=== PATIENT | male | born 1985 | race Two or more races ===

== ENCOUNTER 2017-04-27 12:40 | Emergency (ER) | payer BC ==
--- NOTE | 2017-04-27 13:47 | EDM.PDOC ---
ED HPI GENERAL MEDICAL PROBLEM - General Chief Complaint: Lower Extremity Injury/Pain Stated Complaint: LT LEG AND FOOT NUMBNESS Time Seen by Provider: 04/27/17 12:57 Source of Information: Reports: Patient, RN Notes Reviewed - History of Present Illness INITIAL COMMENTS - FREE TEXT/NARRATIVE: 32-year-old male has developed numbness of his left foot and lateral leg. He states this first started about 3 or 4 days ago and has been becoming progressively worse. Today he feels like he is developing weakness in dorsiflexion of his left foot and great toe. He does not have major discomfort of the back or leg. No fall or apparent injury. He states he is diabetic but does not check his blood sugars, not currently on medication for that. Also with this work he is on his feet most of the day working fairly long hours. He has had no headache or neck discomfort. No right leg symptoms and also no upper extremity symptoms. - Related Data Allergies Allergy/AdvReac Type Severity Reaction Status Date / Time No Known Allergies Allergy Verified 04/27/17 12:52 Home Meds: Home Meds metFORMIN [Glucophage] 500 mg PO BIDMEALS #60 tablet 04/27/17 [Rx] Past Medical History Respiratory History: Reports: Asthma Endocrine/Metabolic History: Reports: Diabetes, Type II Social & Family History - Tobacco Use Smoking Status *Q: Never Smoker Second Hand Smoke Exposure: No - Caffeine Use Caffeine Use: Reports: Coffee - Recreational Drug Use Recreational Drug Use: No Review of Systems - Review of Systems Review Of Systems: See Below Constitutional: Denies: Chills, Fever Eyes: Reports: No Symptoms Mouth/Throat: Reports: No Symptoms Respiratory: Denies: Shortness of Breath, Wheezing, Pleuritic Chest Pain Cardiovascular: Denies: Chest Pain GI/Abdominal: Denies: Abdominal Pain, Nausea, Vomiting Musculoskeletal: Denies: Back Pain, Leg Pain, Foot Pain, Joint Pain Skin: Reports: No Symptoms Neurological: Reports: Numbness (Left foot and distal left lateral leg), Tingling, Weakness (Left toe and dorsiflexion left foot). Denies: Trouble Speaking, Difficulty Walking ED EXAM, GENERAL - Physical Exam Exam: See Below General Appearance: Alert, No Apparent Distress Eye Exam: Bilateral Eye: PERRL Throat/Mouth: Normal Inspection Head: Atraumatic. No: Facial Swelling Neck: Supple, Full Range of Motion Respiratory/Chest: No Respiratory Distress, Lungs Clear, Normal Breath Sounds Cardiovascular: Regular Rate, Rhythm Peripheral Pulses: 4+: Dorsalis Pedis (L), Dorsalis Pedis (R) GI/Abdominal: Soft, Non-Tender Back Exam: No: CVA Tenderness (L), CVA Tenderness (R) Extremities: No: Pedal Edema, Leg Pain, Increased Warmth, Redness Neurological: Alert, Oriented, Other (Decreased sensation to touch and scratch plantar surface left foot and distal lateral left leg, weakness to dorsiflexion and great toe flexion left foot compared to the right.) Skin Exam: Warm, Dry, Normal Color Course - Vital Signs Last Recorded V/S: Last Vital Signs Temp 97.8 F 04/27/17 12:52 Pulse 89 04/27/17 12:52 Resp 18 04/27/17 12:52 BP 131/86 04/27/17 12:52 Pulse Ox 100 04/27/17 12:52 - Orders/Labs/Meds Labs: Laboratory Tests 04/27/17 04/27/17 Range/Units 13:25 13:25 WBC 6.30 (4.23-9.07) K/mm3 RBC 5.43 (4.63-6.08) M/mm3 Hgb 16.0 (13.7-17.5) gm/L Hct 45.7 (40.1-51.0) % MCV 84.2 (79.0-92.2) fl MCH 29.5 (25.7-32.2) pg MCHC 35.0 (32.2-35.5) g/dl RDW Std Deviation 41.1 (35.1-43.9) fL Plt Count 192 (163-337) K/mm3 MPV 8.6 L (9.4-12.3) fl Neut % (Auto) 58.7 (34.0-67.9) % Lymph % (Auto) 27.6 (21.8-53.1) % Mclennan % (Auto) 10.3 (5.3-12.2) % Eos % (Auto) 2.9 (0.8-7.0) Baso % (Auto) 0.2 (0.1-1.2) % Neut # (Auto) 3.70 (1.78-5.38) K/mm3 Lymph # (Auto) 1.74 (1.32-3.57) K/mm3 Mclennan # (Auto) 0.65 (0.30-0.82) K/mm3 Eos # (Auto) 0.18 (0.04-0.54) K/mm3 Baso # (Auto) 0.01 (0.01-0.08) K/mm3 Sodium 142 (136-145) mEq/L Potassium 3.9 (3.5-5.1) mEq/L Chloride 104 (98-107) mEq/L Carbon Dioxide 25 (21-32) mEq/L Anion Gap 16.9 H (5-15) BUN 14 (7-18) mg/dL Creatinine 0.7 (0.7-1.3) mg/dL Est Cr Clr Drug Dosing 157.88 mL/min Estimated GFR (MDRD) > 60 (>60) mL/min BUN/Creatinine Ratio 20.0 H (14-18) Glucose 139 H (74-106) mg/dL Calcium 9.1 (8.5-10.1) mg/dL Total Bilirubin 0.5 (0.2-1.0) mg/dL AST 53 H (15-37) U/L ALT 53 (16-63) U/L Alkaline Phosphatase 78 (46-116) U/L Total Protein 8.3 H (6.4-8.2) g/dl Albumin 3.5 (3.4-5.0) g/dl Globulin 4.8 gm/dL Albumin/Globulin Ratio 0.7 L (1-2) - Re-Assessments/Exams Free Text/Narrative Re-Assessment/Exam: 04/27/17 16:12. Labs came back relatively okay. White blood count normal. Her mildly elevated at around 123. Etiology of his numbness tingling left foot and distal leg as well as numbness with dorsiflexion of the toe and foot unclear. Avastin if he may have slept on it in such a way to put pressure on that area of his leg. He said his possible. He does have some mild discomfort left back but not severe pain like he would normally expect with the sciatica. I am going to start him on prednisone 40 mg daily for 5 days. MRI for his lumbar spine has been ordered. Hopefully that can be done Saturday or early next week. We'll start him back on metformin which she had taken previously for his type 2 diabetes. Discharge instructions as documented. Departure - Departure Time of Disposition: 15:15 Disposition: Home, Self-Care 01 Condition: Fair Clinical Impression: Sciatica of left side - Discharge Information Prescriptions: metFORMIN [Glucophage] 500 mg PO BIDMEALS #60 tablet Instructions: Sciatica, [id number] Referrals: PCP,None [Primary Care Provider] - Forms: ED Department Discharge Additional Instructions: MRI of lumbar spine to check for possible ruptured disc, radiology will be calling you for a time Saturday morning, prednisone 40 mg every morning for the next 5 days, metformin 500 mg daily. Should carbs carefully to try keep your blood sugar under control, the prednisone will tend to raise her blood sugar., Start metformin 500 mg twice daily. Follow-up at our [facility] medical clinic after your MRI has been done for results, call [phone] for appointment.
== END 2017-04-27 15:37 | disposition home or self-care (01) ==
LOC: JD.ED 12:40
DX: M54.32 Sciatica, left side (principal); J45.909 Unspecified asthma, uncomplicated; E11.9 Type 2 diabetes mellitus without complications; Z79.84 Long term (current) use of oral hypoglycemic drugs
CPT/HCPCS: 36415; 80053; 85025; 99283; 99284

== ENCOUNTER 2018-07-05 11:12 | Emergency (ER) | payer BC ==
[2018-07-05] MEDS: Sodium Chloride 0.9% 1,000 ML IV SCH ×2 (11:34→12:35)
--- NOTE | 2018-07-05 11:49 | EDM.PDOC ---
ED HPI GENERAL MEDICAL PROBLEM - General Chief Complaint: Diabetic Complaint Stated Complaint: DIABETIC ISSUES SENT FROM [facility] Time Seen by Provider: 07/05/18 11:18 Source of Information: Reports: Patient, Old Records History Limitations: Reports: No Limitations - History of Present Illness INITIAL COMMENTS - FREE TEXT/NARRATIVE: 33 yo M sent by [facility] for elevated blood glucose, urine glucose and ketones after not taking his Metformin in over 1 month. 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 He went to the walk in clinic today because he had increased thirst, urination, dry mouth, burning with urination for a few weeks. He states he has had this before, when he was in vacation in [place] during the holidays and was "eating bad" and was given IVF and insulin. He has seen a art educator in the past, when he was first diagnosed with DM2 4-5 years ago. He is currently on Metformin 500mg BID. PCP: Dr. Coco Harris Labs today from [facility]: * CBC significant for elevated Hgb 17.8 and MCHC 38.9 * CMP significant for elevated Glu 506, low Na 130, low Cl 93, low CO2 12, elevated AGap 30, elevated Protein 11.4 * A1C elevated at 12.9 * UA significant for elevated Glucose 500, Ketones >or= 80, Protein 100 - Related Data Allergies Allergy/AdvReac Type Severity Reaction Status Date / Time No Known Allergies Allergy Verified 07/05/18 11:22 Home Meds: Home Meds metFORMIN [Glucophage] 500 mg PO BIDMEALS #60 tablet 04/27/17 [Rx] Blood Sugar Diagnostic [Glucose Test Strip] 1 each MC DAILY 30 Days #30 strip [Rx] metFORMIN [Glucophage XR] 500 mg PO BIDMEALS 30 Days #60 tab.er 07/05/18 [Rx] Past Medical History - Past Health History Medical/Surgical History: Denies Medical/Surgical History Respiratory History: Reports: Asthma Endocrine/Metabolic History: Reports: Diabetes, Type II Social & Family History - Tobacco Use Smoking Status *Q: Never Smoker Second Hand Smoke Exposure: No - Caffeine Use Caffeine Use: Reports: Coffee, Energy Drinks, Soda - Recreational Drug Use Recreational Drug Use: No ED ROS GENERAL - Review of Systems Review Of Systems: ROS reveals no pertinent complaints other than HPI. ED EXAM GENERAL NO PERIP PULSE - Physical Exam Exam: See Below Exam Limited By: No Limitations General Appearance: Alert, WD/WN, No Apparent Distress Eye Exam: Bilateral Eye: EOMI, Normal Inspection, PERRL Ears: Normal External Exam, Hearing Grossly Normal Throat/Mouth: Normal Inspection, Normal Gums, Normal Voice, No Airway Compromise. No: Normal Lips (dry), Normal Oropharynx (dry mucosa and coated tongue) Respiratory/Chest: No Respiratory Distress, Lungs Clear, Normal Breath Sounds, No Accessory Muscle Use, Chest Non-Tender Cardiovascular: Normal Peripheral Pulses, Regular Rate, Rhythm, No Edema, No Gallop, No JVD, No Murmur, No Rub GI/Abdominal: Normal Bowel Sounds, Soft, Non-Tender, No Organomegaly, No Distention, No Abnormal Bruit, No Mass Back Exam: Normal Inspection Neurological: Alert, Oriented, CN II-XII Intact, Normal Cognition, Normal Gait, Normal Reflexes, No Motor/Sensory Deficits Psychiatric: Normal Affect, Normal Mood Skin Exam: Warm, Dry, Intact, Normal Color, No Rash Course - Vital Signs Last Recorded V/S: Last Vital Signs Temp 97.7 F 07/05/18 11:19 Pulse 101 H 07/05/18 11:19 Resp 15 07/05/18 11:19 BP 130/107 H 07/05/18 11:19 Pulse Ox 100 07/05/18 11:19 - Orders/Labs/Meds Orders: Active Orders 24 hr Category Date Time Status Blood Glucose Check, Bedside [RC] ASDIRECTED Care 07/05/18 11:24 Active ABG [BLOOD GAS ARTERIAL] [BG] Stat Lab 07/05/18 11:45 Results Sodium Chloride 0.9% [Normal Saline] 1,000 ml Med 07/05/18 11:30 Active IV ASDIRECTED Medication Orders Sodium Chloride (Normal Saline) 1,000 mls @ 999 mls/hr IV ASDIRECTED ISATU Stop: 07/06/18 12:31 Last Admin: 07/05/18 12:35 Dose: 999 mls/hr Infusion: 07/05/18 12:35 Dose: 999 mls/hr Admin: 07/05/18 11:34 Dose: 999 mls/hr Labs: Laboratory Tests 07/05/18 07/05/18 07/05/18 Range/Units 11:30 11:30 11:30 Puncture Site ABG pH (7.35-7.45) ABG pCO2 (35.0-45.0) mmHg ABG pO2 (80.0-100.0) mmHg ABG HCO3 (22.0-26.0) meq/L ABG O2 Saturation (96.0-97.0) % ABG Base Excess (-2-2.0) A-a Gradient mmHg O2 Delivery Device Oxygen Flow Rate FiO2 (21.00-100.00) % Glucose 524 H* (74-106) mg/dL Serum Osmolality 314 H (280-300) mosm/kg Ketones 3.69 (0.0-0.3) mM 07/05/18 07/05/18 07/05/18 Range/Units 11:45 12:49 13:25 Puncture Site Rt radial ABG pH 7.41 (7.35-7.45) ABG pCO2 36.5 (35.0-45.0) mmHg ABG pO2 70.0 L (80.0-100.0) mmHg ABG HCO3 22.7 (22.0-26.0) meq/L ABG O2 Saturation 95.4 L (96.0-97.0) % ABG Base Excess -0.9 (-2-2.0) A-a Gradient 18 mmHg O2 Delivery Device Room air Oxygen Flow Rate 0.0 FiO2 21.00 (21.00-100.00) % Glucose 533 H* 476 H (74-106) mg/dL Serum Osmolality (280-300) mosm/kg Ketones (0.0-0.3) mM 07/05/18 07/05/18 07/05/18 Range/Units 14:02 14:45 15:40 Puncture Site ABG pH (7.35-7.45) ABG pCO2 (35.0-45.0) mmHg ABG pO2 (80.0-100.0) mmHg ABG HCO3 (22.0-26.0) meq/L ABG O2 Saturation (96.0-97.0) % ABG Base Excess (-2-2.0) A-a Gradient mmHg O2 Delivery Device Oxygen Flow Rate FiO2 (21.00-100.00) % Glucose 384 H 406 H 351 H (74-106) mg/dL Serum Osmolality (280-300) mosm/kg Ketones (0.0-0.3) mM Meds: Medications Generic Name Dose Route Start Last Admin Trade Name Ricardo PRN Reason Stop Dose Admin Sodium Chloride 1,000 mls @ 999 mls/hr 07/05/18 11:30 07/05/18 12:35 Normal Saline IV 07/06/18 12:31 999 mls/hr ASDIRECTED ISATU Administration Discontinued Medications Generic Name Dose Route Start Last Admin Trade Name Ricardo PRN Reason Stop Dose Admin Insulin Human Lispro 12 unit 07/05/18 13:19 07/05/18 13:41 Humalog SUBCUT 07/05/18 13:20 12 units ONETIME ONE Administration Insulin Human Lispro 15 unit 07/05/18 15:14 07/05/18 15:21 Humalog SUBCUT 07/05/18 15:15 15 units ONETIME ONE Administration Protocol - Re-Assessments/Exams Free Text/Narrative Re-Assessment/Exam: Labs today from [facility]: * CBC significant for elevated Hgb 17.8 and MCHC 38.9 * CMP significant for elevated Glu 506, low Na 130, low Cl 93, low CO2 12, elevated AGap 30, elevated Protein 11.4 * A1C elevated at 12.9 * UA significant for elevated Glucose 500, Ketones >or= 80, Protein 100 07/05/18 11:24 I have ordered Serum Osmolality, Serum Ketones, ABG, Blood Glucose checks Q30min 2L Bolus IV NS 07/05/18 11:45 ABG shows pH 7.41, pO2 70, O2 sat 95.4 Serum Osmolality 314 07/05/18 12:08 Glucose 524 07/05/18 13:13 Glucose 533 07/05/18 13:19 Humalog 12U given 07/05/18 13:25 Glucose 476 07/05/18 14:50 Glucose 406 07/05/18 15:14 Order 15U Humalog 07/05/18 15:40 Serum ketones elevated at 3.69 07/05/18 15:51 Glucose has dropped to 351 07/05/18 16:22 At this time, Lux seems to be stable and not in active DKA (ketosis, no acidosis). Therefore, will send him home with prescriptions for his Metformin and glucose test strips until he can follow up with his primary care provider. Recommend close follow up. Provided education on diabetes and recommend he also follow up with a art educator. He states he understands and agrees with this plan. Departure - Departure Time of Disposition: 16:26 Disposition: Home, Self-Care 01 Condition: Fair Clinical Impression: Hyperglycemia, Ketosis due to diabetes - Discharge Information *PRESCRIPTION DRUG MONITORING PROGRAM REVIEWED*: Not Applicable *COPY OF PRESCRIPTION DRUG MONITORING REPORT IN PATIENT KIZZY: Not Applicable Prescriptions: Blood Sugar Diagnostic [Glucose Test Strip] 1 each MC DAILY 30 Days #30 strip metFORMIN [Glucophage XR] 500 mg PO BIDMEALS 30 Days #60 tab.er Instructions: Tips for Eating Away From Home If You Have Diabetes, Hyperglycemia, [id number], Preventing Diabetic Ketoacidosis, Diabetic Ketoacidosis Referrals: Coco Harris MD [Primary Care Provider] - Forms: ED Department Discharge Additional Instructions: You were seen in the ED today for elevated glucose and ketones in your blood and urine due to not taking your Metformin. This is a dangerous condition that can lead to what is called Diabetic Ketoacidosis, which can lead to coma and . You were given fluids and insulin while here with improvement. At this time you are stable enough to go home. Will give prescription for Metformin 500mg twice per day as well as test strips as you said you ran out. Recommend close follow up with your primary care provider, Dr. Harris, in a few days. Please return to ED if new or worsening symptoms. - My Orders Last 24 Hours: My Active Orders 07/05/18 11:24 Blood Glucose Check, Bedside [RC] ASDIRECTED 07/05/18 11:30 Sodium Chloride 0.9% [Normal Saline] 1,000 ml IV ASDIRECTED 07/05/18 11:45 ABG [BLOOD GAS ARTERIAL] [BG] Stat - Assessment/Plan Last 24 Hours: My Active Orders 07/05/18 11:24 Blood Glucose Check, Bedside [RC] ASDIRECTED 07/05/18 11:30 Sodium Chloride 0.9% [Normal Saline] 1,000 ml IV ASDIRECTED 07/05/18 11:45 ABG [BLOOD GAS ARTERIAL] [BG] Stat
[2018-07-05] MEDS ORDERED: Insulin Lispro 100 Units/ML 3 ML Vial SUBCUT ONE ×2 (13:19→15:14)
== END 2018-07-05 16:46 | disposition home or self-care (01) ==
LOC: JD.ED 11:12
DX: E11.10 Type 2 diabetes mellitus with ketoacidosis without coma (principal); E11.65 Type 2 diabetes mellitus with hyperglycemia; Z79.84 Long term (current) use of oral hypoglycemic drugs
CPT/HCPCS: 36415; 36600; 82009; 82803; 82947; 83930; 96360; 96361; 96372; 99283; J1815; J7040; 99284

== ENCOUNTER 2018-07-15 05:04 | Emergency (ER) | payer BC ==
--- NOTE | 2018-07-15 05:28 | EDM.PDOC ---
ED HPI GENERAL MEDICAL PROBLEM - General Chief Complaint: Gastrointestinal Problem Stated Complaint: SHARP PAIN IN STOMACH AREA FEELS HARD Time Seen by Provider: 07/15/18 05:23 Source of Information: Reports: Patient History Limitations: Reports: No Limitations - History of Present Illness INITIAL COMMENTS - FREE TEXT/NARRATIVE: 33-year-old male presents to the ED after awakening to void at 4:00 developed pain across his epigastrium and right upper quadrant of the abdomen. States the pain is constant but intermittently is much stronger than previous indicating a colicky component. Associated nausea vomiting although after he drank some water it seemed to make him worse. States he did have diarrhea small quantity 1 chest today. He had a very small formed bowel movement this morning. Denies any heavy alcohol use. Previous abdominal surgery. No fever or chills. No problems voiding. Pain does not radiate through to his back. Onset: Today Onset Date: 07/15/18 Onset Time: 04:00 Duration: Minutes: Location: Reports: Abdomen (Epigastrium and right upper quadrant of the abdomen. ) Quality: Reports: Ache, Sharp, Stabbing, Other Severity: Moderate (Pain has a colicky component) Improves with: Reports: None Worsens with: Reports: None Context: Denies: Activity, Exercise, Lifting, Sick Contact, Trauma Associated Symptoms: Reports: Nausea/Vomiting (Mild nausea after drinking water) , Other (Patient appreciates for the last several weeks that he's got a swelling on the rectum after defecation. This is painful when he wipes and then the swelling seems to disappear up back up into the rectum. This strongly suggests that he has a prolapsing internal hemorrhoid.). 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) Upper Abdomen Pain Score (Numeric/FACES): 5 - Related Data Allergies Allergy/AdvReac Type Severity Reaction Status Date / Time No Known Allergies Allergy Verified 07/05/18 11:22 Home Meds: Home Meds metFORMIN [Glucophage] 500 mg PO BIDMEALS #60 tablet 04/27/17 [Rx] Blood Sugar Diagnostic [Glucose Test Strip] 1 each MC DAILY 30 Days #30 strip [Rx] metFORMIN [Glucophage XR] 500 mg PO BIDMEALS 30 Days #60 tab.er 07/05/18 [Rx] Past Medical History - Past Health History Medical/Surgical History: Denies Medical/Surgical History Respiratory History: Reports: Asthma Endocrine/Metabolic History: Reports: Diabetes, Type II (Controlled with metformin and diet.), Obesity/BMI 30+ Social & Family History - Family History Family Medical History: Noncontributory - Tobacco Use Smoking Status *Q: Never Smoker - Caffeine Use Caffeine Use: Reports: Coffee, Energy Drinks, Soda - Recreational Drug Use Recreational Drug Use: No - Living Situation & Occupation Living situation: Reports: Single Occupation: Employed ED ROS GENERAL - Review of Systems Review Of Systems: See Below Constitutional: Reports: No Symptoms HEENT: Reports: No Symptoms Respiratory: Reports: No Symptoms Cardiovascular: Reports: No Symptoms Endocrine: Reports: Fatigue, Polyuria GI/Abdominal: Reports: Abdominal Pain, Other (see history of present illness history suggests prolapsing internal hemorrhoid.) : Reports: Frequency Musculoskeletal: Reports: No Symptoms Skin: Reports: No Symptoms Neurological: Reports: No Symptoms Psychiatric: Reports: No Symptoms Hematologic/Lymphatic: Reports: No Symptoms Immunologic: Reports: No Symptoms ED EXAM, GI/ABD - Physical Exam Exam: See Below Exam Limited By: No Limitations General Appearance: Alert, WD/WN, No Apparent Distress, Other (Vital signs reveal no fever. Pulse is 90 and sinus respiratory of 18 and sats of 100% on room air. BP is 120/72.) Eyes: Bilateral: Normal Appearance Throat/Mouth: Normal Inspection, Normal Lips, Normal Oropharynx Head: Atraumatic, Normocephalic Neck: Normal Inspection, Supple, Non-Tender, Full Range of Motion. No: Lymphadenopathy (L), Lymphadenopathy (R) Respiratory/Chest: No Respiratory Distress, Lungs Clear, No Accessory Muscle Use , Chest Non-Tender Cardiovascular: Normal Peripheral Pulses, Regular Rate, Rhythm, No Edema, No Gallop, No Murmur, No Rub GI/Abdominal Exam: Soft, No Organomegaly, No Distention ( Ervin sign.), No Abnormal Bruit, Pelvis Stable, Tender (Meniscus mostly epigastrium with a fullness on palpation in this area.), Abnormal Bowel Sounds (Diffuse hyperactive bowel sounds all 4 quadrants.), Other (Negative) (Male) Exam: No Hernia Back Exam: Normal Inspection, Full Range of Motion. No: CVA Tenderness (L), CVA Tenderness (R) Extremities: Normal Inspection, Normal Range of Motion, Non-Tender Neurological: Alert, Oriented, CN II-XII Intact, Normal Cognition Psychiatric: Normal Affect, Normal Mood Skin Exam: Warm, Dry, Intact, Normal Color, No Rash Course - Vital Signs Last Recorded V/S: Last Vital Signs Temp 36.1 C 07/15/18 05:17 Pulse 90 07/15/18 05:17 Resp 18 07/15/18 05:17 BP 120/72 07/15/18 05:17 Pulse Ox 100 07/15/18 05:17 - Orders/Labs/Meds Orders: Active Orders 24 hr Category Date Time Status Abdomen 1V Flat [CR] Stat Exams 07/15/18 05:23 Taken Magnesium Citrate [Citrate of Magnesia] Med 07/15/18 05:37 Once 240 ml PO ONETIME ONE - Radiology Interpretation Free Text/Narrative:: 33-year-old male presents to the ED after wakening with diffuse epigastric right upper quadrant abdominal pain. Pain is constant with a strong colicky component. His bowel function returned is that of mild diarrhea 1 chest today is minimal formed stool this morning. History suggests is that he has a prolapsing internal hemorrhoid for the last several weeks. Also been somewhat more hard and difficult to pass for the last couple of weeks. Of note he is on metformin twice daily for diabetes control. Examination reveals hyperactive bowel sounds all 4 quadrants. There is a fullness in the epigastrium and right upper quadrant with no peritoneal signs. Suspect constipation. Plan KUB to be done. - Re-Assessments/Exams Free Text/Narrative Re-Assessment/Exam: 07/15/18 05:38 KUB confirms clinical suspicion of constipation. He has a large area of distended colon in the hepatic flexure filled with air. Beyond that in the transverse colon and splenic flexure and descending colon there is a large amount of stool causing partial blockage. There is also some increased stool in the cecum. The rectal vault is empty. In regards to his prolapsed hemorrhoid I suggest that he take a trial of MiraLAX 1 scoop daily to keep his stools nice and soft and regular for a period of 2-3 weeks and see if the prolapsed hemorrhoid continues to be a problem. If so then he needs to go and follow-up with Dr. Jane over at [facility] [place] to have internal hemorrhoid banded. Departure - Departure Time of Disposition: 05:39 Disposition: Home, Self-Care 01 Condition: Fair Clinical Impression: Constipation by delayed colonic transit, Internal prolapsed hemorrhoids Abdominal pain Qualifiers: Abdominal location: epigastric Qualified Code(s): R10.13 - Epigastric pain - Discharge Information *PRESCRIPTION DRUG MONITORING PROGRAM REVIEWED*: Not Applicable *COPY OF PRESCRIPTION DRUG MONITORING REPORT IN PATIENT KIZZY: Not Applicable Instructions: Constipation, Adult, [id number], Hemorrhoids, [id number] Referrals: Coco Harris MD [Primary Care Provider] - Forms: ED Department Discharge Additional Instructions: Evaluation the emergency room today in regards to sudden onset of severe epigastric right upper quadrant abdominal pain with a strong colicky component to it. Emanation reveals a fullness in the epigastrium but no other masses were identified. Bowel sounds were much more active than normal. An x-ray of the abdomen confirms constipation with a fair amount of stool throughout the left upper: And left descending colon. There is a large area of distended bowel filled with air in the epigastrium and right upper quadrant of abdomen is currently causing your pain. Treatment is bowel cleanse. Suggest use of magnesium citrate 8 ounces by mouth mixed with 6 ounces of juice of choice. This usually takes an hour to to work in the bowels will usually work 3 or 4 times in the next 4 hours or so often ending in some diarrhea. This should relieve your pain completely. By history you have a prolapsing internal hemorrhoid that comes up with bowel movements. He other have to push it back up in her goes back up and on its own. I would suggest purchasing some MiraLAX powder which is an [id number] stool softener to prevent constipation. It comes as a potter and has no taste. The kidney mixed with any fluid of choice such as water coffee or juice. 1 scoop once daily for the next 2-3 weeks to keep the bowels regular and soft and see if this will allow the internal hemorrhoid to settle down. If it continues to prolapse bleed and hurt with bowel movements then you require a surgeon to have a look at the area and likely band the internal hemorrhoid I would follow-up with Dr. Jane surgeon at [facility] [place] in this regard. You can reach his office by phoning . Return to medical care if not markedly improved after bowel cleanse. - My Orders Last 24 Hours: My Active Orders 07/15/18 05:23 Abdomen 1V Flat [CR] Stat 07/15/18 05:37 Magnesium Citrate [Citrate of Magnesia] 240 ml PO ONETIME ONE - Assessment/Plan Last 24 Hours: My Active Orders 07/15/18 05:23 Abdomen 1V Flat [CR] Stat 07/15/18 05:37 Magnesium Citrate [Citrate of Magnesia] 240 ml PO ONETIME ONE
[2018-07-15] MEDS ORDERED: Magnesium Citrate Solution 296 ML Bottle PO ONE (05:37)
--- NOTE | 2018-07-15 06:58 | CR ---
Abdomen: Supine view of the abdomen was obtained. Comparison: No prior abdominal x-ray. Bowel gas pattern appears within normal limits. Two radiopacities are seen overlying the upper abdomen, these are presumably outside the patient but please correlate. Bony structures are unremarkable. No abnormal calcifications or discrete soft tissue abnormality is seen. Impression: 1. Two radiopacities overlying the upper abdomen most likely outside the patient. Please correlate. 2. Supine abdominal x-ray is otherwise unremarkable. Diagnostic code #2
== END 2018-07-15 05:56 | disposition home or self-care (01) ==
LOC: JD.ED 05:04
DX: K59.01 Slow transit constipation (principal); K64.8 Other hemorrhoids; J45.909 Unspecified asthma, uncomplicated; E11.9 Type 2 diabetes mellitus without complications; Z79.84 Long term (current) use of oral hypoglycemic drugs
CPT/HCPCS: 74018; 99284; A9270; 99283

== ENCOUNTER 2019-07-31 11:27 | Emergency (ER) | payer BC ==
[2019-07-31] MEDS ORDERED: Ondansetron 4 MG/2 ML SDV IVPUSH ONE (11:49)
[2019-07-31] MEDS ORDERED: Sodium Chloride 0.9% 1,000 ML IV STA (11:49)
[2019-07-31] MEDS ORDERED: Sodium Chloride 0.9% 10 ML Syringe FLUSH PRN (11:49)
[2019-07-31] MEDS ORDERED: HYDROmorphone 1 MG/ML Syringe IVPUSH ONE (11:50)
--- NOTE | 2019-07-31 11:58 | EDM.PDOC ---
<KristaCarolina - Last Filed: 07/31/19 14:31> ED HPI GENERAL MEDICAL PROBLEM - General Chief Complaint: Gastrointestinal Problem Stated Complaint: STOMACH ACHE,VOMITING,COLD SWEATS Time Seen by Provider: 07/31/19 11:37 Source of Information: Reports: Patient History Limitations: Reports: No Limitations - History of Present Illness INITIAL COMMENTS - FREE TEXT/NARRATIVE: Shan is a 34 year old male patient who presents with upper epigastric pain. The patient had a tuna sandwich around 09:30 this am. He then rested on the couch watching TV. He started feeling nauseated and started having the upper epigastric pain. He vomited and started feeling weak. He complains of cold sweats and feeling of light headedness. He denies PICHARDO or diarrhea. He has never had this type of pain previously. He had a normal BM today, but thought maybe he was constipated and took Miralax. He has kept the Miralax down. He is rating his upper gastric pain 9/10. He has more pressure when supine and has less pressure when sitting. 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: miralax - Related Data Allergies Allergy/AdvReac Type Severity Reaction Status Date / Time No Known Allergies Allergy Verified 07/31/19 11:36 Home Meds: Home Meds metFORMIN [Glucophage] 500 mg PO BIDMEALS #60 tablet 04/27/17 [Rx] Blood Sugar Diagnostic [Glucose Test Strip] 1 each MC DAILY 30 Days #30 strip [Rx] metFORMIN [Glucophage XR] 500 mg PO BIDMEALS 30 Days #60 tab.er 07/05/18 [Rx] Ondansetron [Zofran ODT] 4 mg PO Q6H PRN #20 tab.dis 07/31/19 [Rx] Past Medical History - Past Health History Medical/Surgical History: Denies Medical/Surgical History Respiratory History: Reports: Asthma Endocrine/Metabolic History: Reports: Diabetes, Type II, Obesity/BMI 30+ Social & Family History - Family History Family Medical History: Noncontributory - Tobacco Use Smoking Status *Q: Never Smoker Second Hand Smoke Exposure: No - Caffeine Use Caffeine Use: Reports: Coffee, Energy Drinks, Soda - Living Situation & Occupation Living situation: Reports: Single Occupation: Employed ED ROS GENERAL - Review of Systems Review Of Systems: See Below Constitutional: Reports: Weakness. Denies: Fever, Chills, Decreased Appetite HEENT: Reports: No Symptoms Respiratory: Reports: No Symptoms Cardiovascular: Reports: Lightheadedness. Denies: Chest Pain, Dyspnea on Exertion, Edema, Syncope Endocrine: Reports: No Symptoms GI/Abdominal: Reports: Abdominal Pain, Nausea, Vomiting. Denies: Constipation, Diarrhea : Denies: Dysuria, Flank Pain, Frequency, Hematuria Musculoskeletal: Reports: No Symptoms Skin: Reports: No Symptoms Neurological: Reports: No Symptoms Psychiatric: Reports: No Symptoms Hematologic/Lymphatic: Reports: No Symptoms Immunologic: Reports: No Symptoms ED EXAM, GI/ABD - Physical Exam Exam: See Below Exam Limited By: No Limitations General Appearance: Alert, Moderate Distress, Obese Head: Atraumatic, Normocephalic Respiratory/Chest: No Respiratory Distress, Lungs Clear, Normal Breath Sounds, No Accessory Muscle Use, Chest Non-Tender Cardiovascular: Normal Peripheral Pulses, Regular Rate, Rhythm, No Edema, No Gallop, No JVD, No Murmur, No Rub GI/Abdominal Exam: Normal Bowel Sounds, Tender (mid upper epigastric) Extremities: Normal Inspection, Normal Range of Motion, Non-Tender Neurological: Alert, Oriented, CN II-XII Intact, Normal Cognition, Normal Gait Psychiatric: Normal Affect, Normal Mood Skin Exam: Warm, Dry, Intact, Normal Color, No Rash Lymphatic: No Adenopathy Course - Vital Signs Last Recorded V/S: Last Vital Signs Temp 96.0 F L 07/31/19 11:33 Pulse 92 07/31/19 11:33 Resp 16 07/31/19 11:33 BP 103/84 07/31/19 11:33 Pulse Ox 95 07/31/19 11:33 - Orders/Labs/Meds Orders: Active Orders 24 hr Category Date Time Status Peripheral IV Care [RC] . DIRECTED Care 07/31/19 11:49 Active UA W/MICROSCOPIC [URIN] Stat Lab 07/31/19 11:49 Ordered Sodium Chloride 0.9% [Saline Flush] Med 07/31/19 11:49 Active 10 ml FLUSH ASDIRECTED PRN ED Antiemetic Medication Reflex [OM.PC] Stat Oth 07/31/19 11:49 Ordered Peripheral IV Insertion Adult [OM.PC] Stat Oth 07/31/19 11:49 Ordered Medication Orders Sodium Chloride (Saline Flush) 10 ml FLUSH ASDIRECTED PRN PRN Reason: Keep Vein Open Last Admin: 07/31/19 11:58 Dose: 10 ml Labs: Laboratory Tests 07/31/19 Range/Units 13:23 WBC 9.16 H (4.23-9.07) K/mm3 RBC 5.01 (4.63-6.08) M/mm3 Hgb 16.4 (13.7-17.5) gm/dl Hct 43.0 (40.1-51.0) % MCV 85.8 (79.0-92.2) fl MCH 32.7 H (25.7-32.2) pg MCHC 38.1 H (32.2-35.5) g/dl RDW Std Deviation 43.8 (35.1-43.9) fL Plt Count 206 (163-337) K/mm3 MPV 9.9 (9.4-12.3) fl Meds: Medications Generic Name Dose Route Start Last Admin Trade Name Freq PRN Reason Stop Dose Admin Sodium Chloride 10 ml 07/31/19 11:49 07/31/19 11:58 Saline Flush FLUSH 10 ml ASDIRECTED PRN Administration Keep Vein Open Discontinued Medications Generic Name Dose Route Start Last Admin Trade Name Freq PRN Reason Stop Dose Admin Hydromorphone HCl 1 mg 07/31/19 11:50 07/31/19 11:58 Dilaudid IVPUSH 07/31/19 11:51 1 mg ONETIME ONE Administration Sodium Chloride 1,000 mls @ 1,000 mls/hr 07/31/19 11:49 07/31/19 11:58 Normal Saline IV 07/31/19 12:48 1,000 mls/hr .BOLUS STA Administration Ondansetron HCl 4 mg 07/31/19 11:49 07/31/19 11:58 Zofran IVPUSH 07/31/19 11:50 4 mg ONETIME ONE Administration - Re-Assessments/Exams Free Text/Narrative Re-Assessment/Exam: 07/31/19 12:03 Will order CBC, CMP, Lipase, UA and Abdominal US. IV ordered with saline, Zofran , and Dilaudid. 07/31/19 12:25 Patient states his pain is better. 5/10. US is in the room. 07/31/19 13:20 Lab called and stated the blood would need to be drawn. Patient informed. 07/31/19 14:32 Continue to wait on labs. Patient informed of the wait. He is talking on his cell phone and is comfortable. Departure - Departure Disposition: Home, Self-Care 01 Clinical Impression: Gastroenteritis - Discharge Information Prescriptions: Ondansetron [Zofran ODT] 4 mg PO Q6H PRN #20 tab.dis PRN Reason: Nausea\vomiting Referrals: Coco Harris MD [Primary Care Provider] - 1 Week Forms: ED Department Discharge Additional Instructions: Drink plenty of fluids. Take zofran 4mg by mouth every 6 hours as needed for nausea and vomiting. Take tylenol or motrin for pain. Follow up with Dr Harris within a week. Try to avoid fatty foods and try to eat more vegetables and protein. Avoid carbs like potatoes and rice. Please return if you are worse. Sepsis Event Note - Evaluation Sepsis Screening Result: No Definite Risk - Focused Exam Vital Signs: Vital Signs Temp Pulse Resp BP Pulse Ox 07/31/19 11:33 96.0 F L 92 16 103/84 95 Date Exam was Performed: 07/31/19 Time Exam was Performed: 14:31 - My Orders Last 24 Hours: My Active Orders 07/31/19 11:49 Peripheral IV Care [RC] . DIRECTED UA W/MICROSCOPIC [URIN] Stat Sodium Chloride 0.9% [Saline Flush] 10 ml FLUSH ASDIRECTED PRN ED Antiemetic Medication Reflex [OM.PC] Stat Peripheral IV Insertion Adult [OM.PC] Stat - Assessment/Plan Last 24 Hours: My Active Orders 07/31/19 11:49 Peripheral IV Care [RC] . DIRECTED UA W/MICROSCOPIC [URIN] Stat Sodium Chloride 0.9% [Saline Flush] 10 ml FLUSH ASDIRECTED PRN ED Antiemetic Medication Reflex [OM.PC] Stat Peripheral IV Insertion Adult [OM.PC] Stat <Luke Yoon - Last Filed: 07/31/19 15:23> Course - Re-Assessments/Exams Free Text/Narrative Re-Assessment/Exam: 07/31/19 15:16 I examined the patient myself and I agree with Faith's assessment and plan. I ordered labs, US, zofran 4mg IV, and dilaudid 1mg IV. His US shows probable fatty infiltration within the liver. No additional abnormality is appreciated on right upper quadrant abdominal US exam. The labs called and his blood is very lypemic. They cannot run any of the labs. They did redraw him and it was still lypemic. They could run a CBC and it showed a WBC of 9.16. He does feel better. I feel this was a viral gastroenteritis. I will get him on some zofran and have him change his diet and follow up with one of our providers in the clinic. Departure - Departure Time of Disposition: 15:20 Condition: Good - Discharge Information *PRESCRIPTION DRUG MONITORING PROGRAM REVIEWED*: Not Applicable *COPY OF PRESCRIPTION DRUG MONITORING REPORT IN PATIENT KIZZY: Not Applicable Sepsis Event Note - Focused Exam Date Exam was Performed: 07/31/19 Time Exam was Performed: 15:16
--- NOTE | 2019-07-31 12:57 | US ---
Limited abdominal ultrasound: Multiple real-time images of the upper right abdomen were obtained. Comparison: Prior abdominal x-ray of 07/15/18 is available. Technologist's note: Difficult due to bowel gas and body habitus Liver shows no focal parenchymal abnormality but appears to be mildly echogenic as compared to the right kidney which suggest the possibility of fatty infiltration. Gallbladder not optimally distended but no shadowing gallstones or gallbladder wall thickening is seen. Common bile duct not visualized, common hepatic duct appears normal in size. Pancreas appears within normal limits as seen. Main portal vein shows normal hepatopedal flow. Right kidney shows no hydronephrosis or mass has a length of 12.9 cm. Impression: 1. Probable fatty infiltration within the liver. 2. No additional abnormality is appreciated on right upper quadrant abdominal ultrasound exam. Diagnostic code #2 This report was dictated in MDT
== END 2019-07-31 15:34 | disposition home or self-care (01) ==
LOC: JD.ED 11:27
DX: K52.9 Noninfective gastroenteritis and colitis, unspecified (principal); J45.909 Unspecified asthma, uncomplicated; E11.9 Type 2 diabetes mellitus without complications; E66.9 Obesity, unspecified; Z68.36 Body mass index [BMI] 36.0-36.9, adult
CPT/HCPCS: 76705; 85027; 96361; 96374; 96375; 99284; J1170; J2405; J7030; 99283

== ENCOUNTER 2019-08-03 06:53 | Emergency (ER) | payer BC ==
[2019-08-03] MEDS ORDERED: Sodium Chloride 0.9% 1,000 ML IV STA (07:07)
[2019-08-03] MEDS ORDERED: Sodium Chloride 0.9% 10 ML Syringe FLUSH PRN ×2 (07:07→07:37)
[2019-08-03] MEDS ORDERED: Iopamidol 612 MG/ML 50 ML SDV IVPUSH ONE (07:37)
[2019-08-03] MEDS ORDERED: Iopamidol 612 MG/ML 100 ML Bottle IVPUSH ONE (07:37)
[2019-08-03] MEDS ORDERED: Diatrizoate Meglumine/Diatrizoate Sodium 37% 120 ML Bottle PO ONE (07:37)
--- NOTE | 2019-08-03 07:48 | EDM.PDOC ---
ED HPI GENERAL MEDICAL PROBLEM - General Chief Complaint: Abdominal Pain Stated Complaint: ABDOMINAL PAIN AND TENDERNESS LOWER LT SIDE Time Seen by Provider: 08/03/19 07:04 Source of Information: Reports: Patient History Limitations: Reports: No Limitations - History of Present Illness INITIAL COMMENTS - FREE TEXT/NARRATIVE: The patient presents with left lower abdominal pain. He was seen here on Saturday for RUQ abdominal pain. An US was done and it showed a fatty liver. His blood was very lipemic and they could not run all of the tests. His WBC was just slightly elevated. He was sent home with some zofran. He has been able to keep fluids down. He has tried some foods. The pain has moved down to the left lower abdomen. He last vomited yesterday. He took a stool softener and he did have some diarrhea. He has no fever, chills, or cough. He has no dysuria or hematuria. He still has his appendix and gallbladder. Onset: Gradual Duration: Week(s): Location: Reports: Abdomen Quality: Reports: Sharp Severity: Moderate Improves with: Reports: None Worsens with: Reports: None Associated Symptoms: Reports: Nausea/Vomiting. Denies: Chest Pain, Cough, Fever /Chills, Headaches, Shortness of Breath Abdominal Pain Score (Numeric/FACES): 2 - Related Data Allergies Allergy/AdvReac Type Severity Reaction Status Date / Time No Known Allergies Allergy Verified 08/03/19 07:07 Home Meds: Home Meds Blood Sugar Diagnostic [Glucose Test Strip] 1 each MC DAILY 30 Days #30 strip [Rx] metFORMIN [Glucophage XR] 500 mg PO BIDMEALS 30 Days #60 tab.er 07/05/18 [Rx] Ondansetron [Zofran ODT] 4 mg PO Q6H PRN #20 tab.dis 07/31/19 [Rx] Hydrocodone/Acetaminophen [Hydrocodone-Acetamin 5-325 mg] 1 - 2 each PO Q6HR PRN #10 tablet 08/03/19 [Rx] Past Medical History - Past Health History Medical/Surgical History: Denies Medical/Surgical History Respiratory History: Reports: Asthma Endocrine/Metabolic History: Reports: Diabetes, Type II, Obesity/BMI 30+ Social & Family History - Family History Family Medical History: Noncontributory - Tobacco Use Smoking Status *Q: Never Smoker - Caffeine Use Caffeine Use: Reports: Coffee - Recreational Drug Use Recreational Drug Use: No - Living Situation & Occupation Living situation: Reports: Single Occupation: Employed ED ROS GENERAL - Review of Systems Review Of Systems: See Below Constitutional: Reports: No Symptoms HEENT: Reports: No Symptoms Respiratory: Reports: No Symptoms Cardiovascular: Reports: No Symptoms Endocrine: Reports: No Symptoms GI/Abdominal: Reports: Abdominal Pain, Diarrhea, Nausea, Vomiting : Reports: No Symptoms Musculoskeletal: Reports: No Symptoms ED EXAM, GI/ABD - Physical Exam Exam: See Below Exam Limited By: No Limitations General Appearance: Alert, No Apparent Distress Ears: Normal External Exam Nose: Normal Inspection Head: Atraumatic, Normocephalic Neck: Normal Inspection Respiratory/Chest: No Respiratory Distress, Lungs Clear, Normal Breath Sounds Cardiovascular: Regular Rate, Rhythm, No Edema, No Murmur GI/Abdominal Exam: Soft, No Organomegaly, No Mass, Tender (Mild tenderness to the left lower abdomen) Course - Vital Signs Last Recorded V/S: Last Vital Signs Temp 98.2 F 08/03/19 07:04 Pulse 127 H 08/03/19 07:04 Resp 18 08/03/19 07:04 BP 140/89 08/03/19 07:04 Pulse Ox 96 08/03/19 07:04 - Orders/Labs/Meds Orders: Active Orders 24 hr Category Date Time Status Peripheral IV Care [RC] . DIRECTED Care 08/03/19 07:08 Active UA W/MICROSCOPIC [URIN] Stat Lab 08/03/19 07:07 Ordered Sodium Chloride 0.9% [Saline Flush] Med 08/03/19 07:07 Active 10 ml FLUSH ASDIRECTED PRN Sodium Chloride 0.9% [Saline Flush] Med 08/03/19 07:37 Active 10 ml FLUSH ONETIME PRN Peripheral IV Insertion Adult [OM.PC] Stat Oth 08/03/19 07:07 Ordered Medication Orders Sodium Chloride (Saline Flush) 10 ml FLUSH ASDIRECTED PRN PRN Reason: Keep Vein Open Last Admin: 08/03/19 07:22 Dose: 10 ml Sodium Chloride (Saline Flush) 10 ml FLUSH ONETIME PRN PRN Reason: IV FLUSH Last Admin: 08/03/19 08:21 Dose: 10 ml Labs: Laboratory Tests 08/03/19 08/03/19 Range/Units 07:17 07:17 WBC 12.59 H (4.23-9.07) K/mm3 RBC 5.28 (4.63-6.08) M/mm3 Hgb 15.7 (13.7-17.5) gm/dl Hct 45.7 (40.1-51.0) % MCV 86.6 (79.0-92.2) fl MCH 29.7 (25.7-32.2) pg MCHC 34.4 (32.2-35.5) g/dl RDW Std Deviation 46.2 H (35.1-43.9) fL Plt Count 167 (163-337) K/mm3 MPV 9.2 L (9.4-12.3) fl Neut % (Auto) 68.2 H (34.0-67.9) % Lymph % (Auto) 17.1 L (21.8-53.1) % [place] % (Auto) 10.9 (5.3-12.2) % Eos % (Auto) 3.2 (0.8-7.0) Baso % (Auto) 0.2 (0.1-1.2) % Neut # (Auto) 8.59 H (1.78-5.38) K/mm3 Lymph # (Auto) 2.15 (1.32-3.57) K/mm3 [place] # (Auto) 1.37 H (0.30-0.82) K/mm3 Eos # (Auto) 0.40 (0.04-0.54) K/mm3 Baso # (Auto) 0.03 (0.01-0.08) K/mm3 Sodium 131 L (136-145) mEq/L Potassium 3.8 (3.5-5.1) mEq/L Chloride 97 L (98-107) mEq/L Carbon Dioxide 9 L D (21-32) mEq/L Anion Gap 28.8 H (5-15) BUN 9 (7-18) mg/dL Creatinine 0.7 (0.7-1.3) mg/dL Est Cr Clr Drug Dosing 154.98 mL/min Estimated GFR (MDRD) > 60 (>60) mL/min BUN/Creatinine Ratio 12.9 L (14-18) Glucose 292 H (74-106) mg/dL Calcium 8.3 L (8.5-10.1) mg/dL Total Bilirubin 1.0 (0.2-1.0) mg/dL AST 12 L (15-37) U/L ALT 27 (16-63) U/L Alkaline Phosphatase 70 (46-116) U/L Total Protein 8.5 H (6.4-8.2) g/dl Albumin 2.8 L (3.4-5.0) g/dl Globulin 5.7 gm/dL Albumin/Globulin Ratio 0.5 L (1-2) Lipase 540 H (73-393) U/L Meds: Medications Generic Name Dose Route Start Last Admin Trade Name Gianq PRN Reason Stop Dose Admin Sodium Chloride 10 ml 08/03/19 07:07 08/03/19 07:22 Saline Flush FLUSH 10 ml ASDIRECTED PRN Administration Keep Vein Open Sodium Chloride 10 ml 08/03/19 07:37 08/03/19 08:21 Saline Flush FLUSH 10 ml ONETIME PRN Administration IV FLUSH Discontinued Medications Generic Name Dose Route Start Last Admin Trade Name Freq PRN Reason Stop Dose Admin Diatrizoate Meglum/Diatrizoate Sod 120 ml 08/03/19 07:37 08/03/19 08:21 Gastrografin 37% PO 08/03/19 07:38 90 ml ONETIME ONE Administration Sodium Chloride 1,000 mls @ 1,000 mls/hr 08/03/19 07:07 08/03/19 07:20 Normal Saline IV 08/03/19 08:06 1,000 mls/hr .BOLUS STA Administration Iopamidol 100 ml 08/03/19 07:37 08/03/19 08:21 Isovue-300 (61%) IVPUSH 08/03/19 07:38 100 ml ONETIME ONE Administration Iopamidol 50 ml 08/03/19 07:37 08/03/19 08:21 Isovue-300 (61%) IVPUSH 08/03/19 07:38 50 ml ONETIME ONE Administration - Re-Assessments/Exams Free Text/Narrative Re-Assessment/Exam: 08/03/19 07:48 I ordered an IV NS 1L bolus, labs, UA and a CT of his abdomen and pelvis with IV and oral contrast. 08/03/19 09:42 His WBC was elevated at 12.59. His Na is low at 131. His anion gap is elevated at 28.8. His CO2 is low at 9. His glucose is elevated at 292. His lipase is elevated at 540. His CT shows findings compatible with pancreatitis. Fatty infiltration within the liver. No other acute finding is seen. The patient can hold down food and water. I do not feel he needs to be admitted at this time. He did get a liter of fluid here and he needs to push the fluids. Departure - Departure Time of Disposition: 09:50 Disposition: Home, Self-Care 01 Condition: Good Clinical Impression: Pancreatitis Qualifiers: Chronicity: acute Pancreatitis type: other Acute pancreatitis complication: no infection or necrosis Qualified Code(s): K85.80 - Other acute pancreatitis without necrosis or infection - Discharge Information *PRESCRIPTION DRUG MONITORING PROGRAM REVIEWED*: Not Applicable *COPY OF PRESCRIPTION DRUG MONITORING REPORT IN PATIENT [facility]: Not Applicable Prescriptions: Hydrocodone/Acetaminophen [Hydrocodone-Acetamin 5-325 mg] 1 - 2 each PO Q6HR PRN #10 tablet PRN Reason: Pain Referrals: Coco Harris MD [Primary Care Provider] - 1 Week Forms: ED Department Discharge, ED Return to Work/School Form Additional Instructions: Drink plenty of fluids. Take the zofran every 6 hours as needed for nausea and vomiting. Take tylenol or motrin for pain. If that does not help try the hydrocodone. Follow up with Dr Harris this week. Please return if you are worse. Start with clear liquids and advance your diet as tolerated. Avoid alcohol. Keep taking your medications. Avoid any fatty food. Try to eat lean protein, vegetables and fruits. Avoid simple carbs like bread, rice, potatoes. Sepsis Event Note - Evaluation Sepsis Screening Result: No Definite Risk - Focused Exam Vital Signs: Vital Signs Temp Pulse Resp BP Pulse Ox 08/03/19 07:04 98.2 F 127 H 18 140/89 96 Date Exam was Performed: 08/03/19 Time Exam was Performed: 09:42 - My Orders Last 24 Hours: My Active Orders 08/03/19 07:07 UA W/MICROSCOPIC [URIN] Stat Sodium Chloride 0.9% [Saline Flush] 10 ml FLUSH ASDIRECTED PRN Peripheral IV Insertion Adult [OM.PC] Stat 08/03/19 07:08 Peripheral IV Care [RC] . DIRECTED 08/03/19 07:37 Sodium Chloride 0.9% [Saline Flush] 10 ml FLUSH ONETIME PRN - Assessment/Plan Last 24 Hours: My Active Orders 08/03/19 07:07 UA W/MICROSCOPIC [URIN] Stat Sodium Chloride 0.9% [Saline Flush] 10 ml FLUSH ASDIRECTED PRN Peripheral IV Insertion Adult [OM.PC] Stat 08/03/19 07:08 Peripheral IV Care [RC] . DIRECTED 08/03/19 07:37 Sodium Chloride 0.9% [Saline Flush] 10 ml FLUSH ONETIME PRN
--- NOTE | 2019-08-03 09:03 | CT ---
CT abdomen and pelvis Technique: Multiple axial sections were obtained from above the dome of the diaphragm inferiorly through the pubic symphysis. Intravenous and oral contrast was utilized. Delayed images were also obtained through the abdomen and pelvis. Comparison: Prior limited abdominal ultrasound of 07/31/19 is available. Findings: Inflammatory change is identified around the pancreas primarily involving the body and tail. Fluid is seen to extend down the left paracolic gutter. No other findings of ascites are seen. Visualized lung bases show nothing acute. Fatty infiltration is noted within the liver. Gallbladder contains no calcified gallstones. Spleen appears within normal limits. Adrenal glands show no nodule. Kidneys show symmetric contrast enhancement without hydronephrosis or mass aorta shows no aneurysm. No retroperitoneal adenopathy is seen. No pelvic adenopathy is identified. Delayed images were obtained which shows contrast excretion into both ureters. Opacified ureters are seen down to the bladder. Small fat-containing umbilical hernia is noted. Bony structures show mild scattered degenerative change. Impression: 1. Findings compatible with pancreatitis as described above. 2. Fatty infiltration within the liver. 3. No other acute finding is seen. Diagnostic code #3 This report was dictated in MDT
== END 2019-08-03 10:00 | disposition home or self-care (01) ==
LOC: JD.ED 06:53
DX: K85.80 Other acute pancreatitis without necrosis or infection (principal); E11.9 Type 2 diabetes mellitus without complications; E66.9 Obesity, unspecified; Z68.36 Body mass index [BMI] 36.0-36.9, adult; Z79.84 Long term (current) use of oral hypoglycemic drugs
CPT/HCPCS: 36415; 74177; 80053; 83690; 85025; 96360; 96361; 99284; J7030; Q9963; Q9967